=== PATIENT | male | born 1960 | race Caucasian/White ===

== ENCOUNTER 2019-04-30 06:19 | Day surgery (SDC) | payer BC ==
--- NOTE | 2019-04-23 10:47 | HP ---
DATE OF ADMISSION: 04/23/2019 DATE OF DICTATION: 03/18/2019 REASON FOR ADMISSION: Left inguinal hernia. BRIEF HISTORY: This is a 58-year-old gentleman whose history dates back to January this year right before his son's wedding and he noted a lump in his left groin. Patient states the lump causes him discomfort with sitting, bending, or any type of strenuous activity. He also had discomfort with prolonged walking in the left groin region. He has had no nausea, no vomiting, or change in bowel habits. PAST MEDICAL HISTORY: Significant for reflux disease. He has no coronary artery disease, hypertension, or diabetes. PAST SURGICAL HISTORY: Patient has had a TURP. ALLERGIES: None. MEDICATIONS: Zocor and omeprazole. SOCIAL HISTORY: He does not smoke. No history of drug use. He does not drink. LABORATORY TESTS/DATA: Patient had an ultrasound of the groins performed at [facility]. The ultrasound was done January 23, 2019. The ultrasound confirmed a left inguinal hernia. PHYSICAL EXAMINATION: General: Patient examined in the erect and supine position. Abdomen: He is placed through Valsalva maneuvers. Patient has a slight asymmetry in the groins. Left has a little bit more fat than compared to the right. He has a left inguinal hernia I note on examination. It is reducible. It is nontender. He has no point tenderness in left groin. On the right side, there is some laxity noted. No obvious defect, however, upon closer questioning, the patient states he occasionally has discomfort on the right side as well. Genitourinary: Scrotum and testicles within normal limits. ASSESSMENT AND PLAN: Left inguinal hernia, suspect small right inguinal hernia. This is a 58-year-old gentleman symptomatic from a left inguinal hernia. At this point, the hernia can be addressed laparoscopically, and given the fact that I feel he may have a hernia on the right as well, I will examine the right side. At the time of surgery, if a hernia is identified, it will be repaired. If no hernia is seen on the right, a piece of mesh will be left in the direct inguinal space for reinforcement. The indications, alternatives, and complications of the procedure of bilateral inguinal hernia repair have been discussed. Questions have been answered. We will plan to obtain written consent the day of surgery. NIDHI CERVANTES M.D. B[facility]EDICT/[id number] cc: Dr. Stu Llamas
[2019-04-29 11:41] VITALS: BMI 26.6
[2019-04-30] MEDS ORDERED: CEFAZOLIN 1 GM/D5W 1 GM/50 ML BAG ONE (07:19)
[2019-04-30] MEDS ORDERED: TAMSULOSIN HCL 0.4 MG CAP ONE (07:20)
[2019-04-30] MEDS ORDERED: ROPIVACAINE HCL 0.5% 30ML VIAL ONE ×2 (07:57→07:59)
[2019-04-30] MEDS ORDERED: MIDAZOLAM HCL 2 MG/2 ML SINGLE DOSE VIAL ONE ×2 (08:38)
[2019-04-30] MEDS ORDERED: PROPOFOL 20 ML ONE ×2 (08:56→09:32)
[2019-04-30] MEDS ORDERED: KETAMINE HCL 200 MG/20 ML VIAL ONE (08:58)
[2019-04-30] MEDS ORDERED: ceFAZolin SODIUM 1 GM VIAL IVPB ONE (09:13)
[2019-04-30] MEDS ORDERED: EPHEDRINE SULFATE/0.9% NACL/PF 50 MG/10 ML SYRINGE NR ONE (09:20)
[2019-04-30] MEDS ORDERED: KETOROLAC TROMETHAMINE 30 MG/1 ML VIAL ONE (09:22)
[2019-04-30] MEDS ORDERED: LIDOCAINE HCL/PF 2% SDV 5ML VIAL ONE (09:30)
[2019-04-30] MEDS ORDERED: ONDANSETRON 4 MG/2 ML VIAL ONE (09:30)
[2019-04-30] MEDS ORDERED: SODIUM CHLORIDE 0.9% P/F 10 ML VIAL IJ ONE (09:30)
[2019-04-30] MEDS ORDERED: ceFAZolin SODIUM 1 GM VIAL ONE (09:30)
[2019-04-30] MEDS ORDERED: DEXAMETHASONE SOD PHOSPHATE 4 MG/1 ML VIAL ONE (09:30)
[2019-04-30] MEDS ORDERED: GLYCOPYRROLATE 0.2 MG/1 ML VIAL ONE (09:33)
[2019-04-30] MEDS ORDERED: NEOSTIGMINE METHYLSULFATE 0.5 MG/1 ML - 10 ML MDV ONE (09:33)
[2019-04-30 11:37] VITALS: TEMP 97.9
[2019-04-30] MEDS ORDERED: ONDANSETRON 4 MG/2 ML VIAL IVPUSH PRN (11:44)
[2019-04-30] MEDS ORDERED: oxyCODONE HCL 5 MG TABLET PO PRN ×2 (11:44)
[2019-04-30] MEDS ORDERED: LACTATED RINGERS SOLUTION 1,000 ML IV SCH (11:45)
[2019-04-30 13:39] VITALS: BP 142/85; PULSE 84
--- NOTE | 2019-04-30 16:44 | OP ---
DATE OF OPERATION: 04/30/2019 PREOPERATIVE DIAGNOSIS: Left inguinal hernia, suspect right inguinal hernia. POSTOPERATIVE DIAGNOSIS: Bilateral indirect inguinal hernias. PROCEDURE: Bilateral laparoscopic inguinal herniorrhaphy with mesh. SURGEON: Carlito Johnson MD CERTIFIED ART THERAPIST: Lenny Cazares DO ANESTHESIA: Omer Jackson MD (General). ESTIMATED BLOOD LOSS: Minimal. SPECIMEN: None. INDICATION FOR PROCEDURE: This is a 59-year-old gentleman with a left inguinal hernia, which he is symptomatic from. It is causing him discomfort. He now wishes to have this repaired. On physical examination, I thought that he had a small right inguinal hernia as well. I will examine the right side as indicated. DESCRIPTION OF PROCEDURE: Patient identified and appropriately positioned on operating room table. After placement of general anesthesia, the abdomen was prepped and draped in the usual sterile fashion with ChloraPrep. An infraumbilical incision was made, deepened to subcutaneous tissue. The fascia of the rectus muscle on the right identified, divided sharply. The muscles split under direction vision. Dissector balloon followed by structural balloon placed. Also under direct vision, an 11-mm port placed. The following structures on the right side identified: Pubic tubercle, Hi ligament, inferior epigastric vessels, spermatic cord, and lateral abdominal wall. During this dissection, the patient was noted to have a small, indirect inguinal hernia. I suspected on physical exam. The indirect sac reduced back into the preperitoneal space with blunt dissection. A 5 x 6 piece of Versatex salamanca holed and placed through the superior port site. The mesh was wrapped around the cord structures laterally to reconstruct the internal ring. Laterally, the mesh anchored to anterior abdominal wall and lateral abdominal wall. Medially, mesh anchored to the anterior abdominal wall, pubic tubercle, Hi ligament. Upon completion of the right side, similar structure on the left side identified. On the left side, he had a larger, indirect inguinal hernia sac. This was, again, reduced back into preperitoneal space with sharp dissection. Another 5 x 6 piece of Versatex mesh was salamanca holed, placed through the superior port site. The mesh was wrapped around the cord structures laterally to reconstruct the internal ring. Laterally, the mesh was anchored to the anterior abdominal and lateral abdominal wall. Medially, mesh rollover left in the midline, anchored to the anterior abdominal wall, pubic tubercle, and Hi ligament. The preperitoneal space desufflated under direct vision. The operative field examined and noted to be hemostatic. Ports were removed. Port sites were hemostatic. The fascia at both port sites were reapproximated with interrupted 0 Vicryl suture. All skin closed with 4-0 Biosyn followed by Dermabond. At the conclusion of the case, sponge and instrument counts were correct. ATTESTATION: Brief operative note handwritten on the preprinted form. [facility] queried prior to giving any narcotics. Michael SALAZAR [id number] cc: Dr. Farhad MALAVE
== END 2019-04-30 13:25 | disposition home or self-care (01) ==
LOC: JASU-SURG 06:19
PROVIDERS: ATTEND Surgery
PROC: 0YUA4JZ Supplement Bilateral Inguinal Region with Synthetic Substitute, Percutaneous Endoscopic Approach (ICD-10-PCS; principal; 2019-04-30 09:00)
DX: K40.20 Bilateral inguinal hernia, without obstruction or gangrene, not specified as recurrent (principal)
CPT/HCPCS: 94760